=== PATIENT | female | born 1995 ===

== ENCOUNTER 2016-06-19 21:04 | Emergency (ER) | payer SELFPAY ==
[~2016-06-19] VITALS: Ht 160 cm; Wt 78.5 kg
[2016-06-19 21:14] VITALS: Ht 160 cm; Wt 78.5 kg
== END 2016-06-20 00:57 | disposition left against medical advice (07) ==
LOC: FTE 21:04
DX: Z53.21 Procedure and treatment not carried out due to patient leaving prior to being seen by health care provider (principal)